=== PATIENT | female | born 1940 | race Caucasian/White ===

== ENCOUNTER 2021-10-21 13:50 | Inpatient (IN) ==
[2021-10-21] MEDS ORDERED: Ipratropium/Albuterol Neb 3 ML IH ONE (14:20)
[2021-10-21 14:45] LABS: Basophils % 0.4 %; Eosinophils % 0.8 %; Hemoglobin 13.6 g/dL (11.5-15.4); Immature Granulocytes % 0.4 % (0-4); Lymphocytes # 1.6 K/mcL (0.6-4.6); Lymphocytes % 31.4 %; Mean Corpuscular HGB Conc 32.4 g/dL (31.6-35.5); Mean Corpuscular Hemoglobin 31.1 pg (28.0-33.3); Mean Corpuscular Volume 96.1 fL (83.0-100.0); Monocytes # 0.7 K/mcL (0.0-1.3); Monocytes % 13.8 %; Neutrophils # 2.7 K/mcL (1.6-8.9); Platelet Count 321 K/mcL (140-400); Red Blood Count 4.37 M/mcL (3.82-4.97); Segmented Neutrophils % 53.2 %
[2021-10-21 15:05] LABS: Calcium 9.2 mg/dL (8.6-10.3); Potassium 3.3 mEq/L (3.5-5.1); Troponin I 0.03 ng/mL (< 0.04)
[2021-10-21] MEDS ORDERED: Piperacillin/Tazobactam 3.375 GM in 0.9 % Sodium Chloride Mini Bag 100 ML IVPB ONE (15:13)
[2021-10-21] MEDS ORDERED: Naloxone 0.4 MG/ML INJ IVP PRN (17:13)
[2021-10-21] MEDS ORDERED: MOM Conc 10 ML UD.LIQ PO PRN (17:13)
[2021-10-21] MEDS ORDERED: Ondansetron 4 MG/2 ML VIAL IVP PRN (17:13)
[2021-10-21] MEDS ORDERED: Mag Hydrox/Al Hydrox/Simeth 30 ML UDC PO PRN (17:13)
[2021-10-21] MEDS ORDERED: Loratadine 10 MG TABLET PO PRN (17:31)
[2021-10-21] MEDS: *HR* HYDROcodone/Acet 5/325 mg TABLET PO PRN (21:10)
[2021-10-21] MEDS: Gabapentin 100 MG CAPSULE PO SCH (21:11)
[2021-10-21] MEDS: Piperacillin/Tazobactam 3.375 GM in 0.9 % Sodium Chloride Mini Bag 100 ML IVPB SCH (23:50)
[2021-10-22 07:47] LABS: Basophils % 0.6 %; Eosinophils # 0.1 K/mcL (0.0-0.6); Eosinophils % 1.3 %; Hematocrit 37.4 % (35.3-44.9); Hemoglobin 11.8 g/dL (11.5-15.4); Immature Granulocytes % 0.2 % (0-4); Lymphocytes # 1.6 K/mcL (0.6-4.6); Lymphocytes % 34.8 %; Mean Corpuscular HGB Conc 31.6 g/dL (31.6-35.5); Mean Corpuscular Hemoglobin 30.7 pg (28.0-33.3); Mean Corpuscular Volume 97.4 fL (83.0-100.0); Monocytes # 0.8 K/mcL (0.0-1.3); Monocytes % 16.5 %; Neutrophils # 2.2 K/mcL (1.6-8.9); Platelet Count 279 K/mcL (140-400); Red Blood Count 3.84 M/mcL (3.82-4.97); Red Cell Distribution Width 16.3 % (11.5-14.5); Segmented Neutrophils % 46.6 %; White Blood Count 4.6 K/mcL (4.3-11.1)
[2021-10-22 08:04] LABS: Calcium 8.7 mg/dL (8.6-10.3); Potassium 3.1 mEq/L (3.5-5.1)
[2021-10-22] MEDS ORDERED: *HR* Rivaroxaban 10 MG TABLET PO SCH (09:00)
[2021-10-22] MEDS: gemfibroziL 600 MG TABLET PO SCH ×2 (09:41→17:12)
[2021-10-22] MEDS: Furosemide 20 MG TABLET PO SCH (09:41)
[2021-10-22] MEDS: Gabapentin 100 MG CAPSULE PO SCH ×2 (09:41→20:03)
[2021-10-22] MEDS: Cyanocobalamin (B-12) 1,000 MCG TABLET PO SCH (09:41)
[2021-10-22] MEDS: Piperacillin/Tazobactam 3.375 GM in 0.9 % Sodium Chloride Mini Bag 100 ML IVPB SCH ×2 (09:41→16:58)
[2021-10-22 11:51] LABS: Adenovirus Not Detected (Not Detect); Bordetella Pertussis Not Detected (Not Detect); Chlamydophila pneumoniae Not Detected (Not Detect); Coronavirus 229E Not Detected (Not Detect); Coronavirus HKU1 Not Detected (Not Detect); Coronavirus NL63 Not Detected (Not Detect); Coronavirus OC43 Not Detected (Not Detect); Human Metapneumovirus Not Detected (Not Detect); Human Rhinovirus/Enterovirus Not Detected (Not Detect); Influenza A Subtype 2009 H1 Not Detected (Not Detect); Influenza B Not Detected (Not Detect); Mycoplasma pneumoniae Not Detected (Not Detect); Parainfluenza Virus 1 Not Detected (Not Detect); Parainfluenza Virus 2 Not Detected (Not Detect); Parainfluenza Virus 3 Not Detected (Not Detect); Parainfluenza Virus 4 Not Detected (Not Detect); Respiratory Syncytial Virus Not Detected (Not Detect); SARS-CoV-2 Not Detected (Not Detect)
[2021-10-22] MEDS: 0.9 % Sodium Chloride 1,000 ML IVC SCH (16:01)
[2021-10-23] MEDS: Piperacillin/Tazobactam 3.375 GM in 0.9 % Sodium Chloride Mini Bag 100 ML IVPB SCH ×3 (01:03→16:13)
[2021-10-23 06:36] LABS: Basophils # 0.1 K/mcL (0.0-0.2); Basophils % 0.9 %; Eosinophils # 0.1 K/mcL (0.0-0.6); Eosinophils % 2.5 %; Hematocrit 38.6 % (35.3-44.9); Hemoglobin 12.1 g/dL (11.5-15.4); Immature Granulocytes % 0.2 % (0-4); Lymphocytes # 1.6 K/mcL (0.6-4.6); Lymphocytes % 31.1 %; Mean Corpuscular HGB Conc 31.3 g/dL (31.6-35.5); Mean Corpuscular Hemoglobin 31.2 pg (28.0-33.3); Mean Corpuscular Volume 99.5 fL (83.0-100.0); Mean Platelet Volume 10.2 fL (9.4-12.4); Monocytes # 0.8 K/mcL (0.0-1.3); Monocytes % 14.8 %; Neutrophils # 2.7 K/mcL (1.6-8.9); Platelet Count 273 K/mcL (140-400); Red Blood Count 3.88 M/mcL (3.82-4.97); Red Cell Distribution Width 16.5 % (11.5-14.5); Segmented Neutrophils % 50.5 %; White Blood Count 5.3 K/mcL (4.3-11.1)
[2021-10-23 07:01] LABS: Calcium 8.5 mg/dL (8.6-10.3); Potassium 3.5 mEq/L (3.5-5.1)
[2021-10-23] MEDS: Gabapentin 100 MG CAPSULE PO SCH ×2 (09:09→19:55)
[2021-10-23] MEDS: gemfibroziL 600 MG TABLET PO SCH ×2 (09:10→16:14)
[2021-10-23] MEDS: Cyanocobalamin (B-12) 1,000 MCG TABLET PO SCH (09:10)
[2021-10-23] MEDS: *HR* Rivaroxaban 15 MG TABLET PO SCH (09:10)
[2021-10-23] MEDS: 0.9 % Sodium Chloride 1,000 ML IVC SCH (09:11)
[2021-10-24] MEDS: Piperacillin/Tazobactam 3.375 GM in 0.9 % Sodium Chloride Mini Bag 100 ML IVPB SCH ×2 (00:31→08:30)
[2021-10-24] MEDS: Acetaminophen 325 MG TABLET PO PRN ×2 (03:04→16:00)
[2021-10-24 07:41] LABS: Basophils % 0.6 %; Eosinophils # 0.2 K/mcL (0.0-0.6); Eosinophils % 2.8 %; Hematocrit 38.3 % (35.3-44.9); Hemoglobin 12.1 g/dL (11.5-15.4); Immature Granulocytes % 0.2 % (0-4); Lymphocytes # 1.4 K/mcL (0.6-4.6); Lymphocytes % 25.2 %; Mean Corpuscular HGB Conc 31.6 g/dL (31.6-35.5); Mean Corpuscular Hemoglobin 31.2 pg (28.0-33.3); Mean Corpuscular Volume 98.7 fL (83.0-100.0); Mean Platelet Volume 10.3 fL (9.4-12.4); Monocytes # 0.8 K/mcL (0.0-1.3); Monocytes % 15.2 %; Platelet Count 261 K/mcL (140-400); Red Blood Count 3.88 M/mcL (3.82-4.97); Red Cell Distribution Width 15.9 % (11.5-14.5); White Blood Count 5.4 K/mcL (4.3-11.1)
[2021-10-24 07:53] LABS: Calcium 8.6 mg/dL (8.6-10.3); Magnesium 1.6 mg/dL (1.6-2.6); Potassium 3.5 mEq/L (3.5-5.1)
[2021-10-24] MEDS: Cyanocobalamin (B-12) 1,000 MCG TABLET PO SCH (08:31)
[2021-10-24] MEDS: *HR* Rivaroxaban 15 MG TABLET PO SCH (08:31)
[2021-10-24] MEDS: Gabapentin 100 MG CAPSULE PO SCH ×2 (08:32→19:56)
[2021-10-24] MEDS: gemfibroziL 600 MG TABLET PO SCH ×2 (08:32→18:31)
[2021-10-24] MEDS: lisinopriL 20 MG TABLET PO SCH (13:16)
[2021-10-24] MEDS: amLODIPine 5 MG TABLET PO SCH ×3 (13:16→19:03)
[2021-10-24] MEDS: Amoxicillin/Clavulanate 500 MG TABLET PO SCH (17:05)
[2021-10-25 05:02] LABS: Basophils # 0.1 K/mcL (0.0-0.2); Basophils % 0.9 %; Eosinophils # 0.1 K/mcL (0.0-0.6); Eosinophils % 1.8 %; Hematocrit 38.1 % (35.3-44.9); Hemoglobin 12.1 g/dL (11.5-15.4); Immature Granulocytes % 0.2 % (0-4); Lymphocytes # 1.4 K/mcL (0.6-4.6); Lymphocytes % 24.5 %; Mean Corpuscular HGB Conc 31.8 g/dL (31.6-35.5); Mean Corpuscular Hemoglobin 31.2 pg (28.0-33.3); Mean Corpuscular Volume 98.2 fL (83.0-100.0); Mean Platelet Volume 10.1 fL (9.4-12.4); Monocytes # 0.7 K/mcL (0.0-1.3); Monocytes % 13.1 %; Neutrophils # 3.3 K/mcL (1.6-8.9); Platelet Count 268 K/mcL (140-400); Red Blood Count 3.88 M/mcL (3.82-4.97); Red Cell Distribution Width 15.9 % (11.5-14.5); Segmented Neutrophils % 59.5 %; White Blood Count 5.5 K/mcL (4.3-11.1)
[2021-10-25] MEDS: Acetaminophen 325 MG TABLET PO PRN ×2 (05:18→20:02)
[2021-10-25 06:00] LABS: Magnesium 1.7 mg/dL (1.6-2.6); Potassium 3.6 mEq/L (3.5-5.1)
[2021-10-25] MEDS: Furosemide 20 MG TABLET PO SCH (09:13)
[2021-10-25] MEDS: amLODIPine 5 MG TABLET PO SCH (09:13)
[2021-10-25] MEDS: *HR* Rivaroxaban 15 MG TABLET PO SCH (09:13)
[2021-10-25] MEDS: Amoxicillin/Clavulanate 500 MG TABLET PO SCH ×2 (09:13→18:22)
[2021-10-25] MEDS: gemfibroziL 600 MG TABLET PO SCH ×2 (09:14→18:22)
[2021-10-25] MEDS: Cyanocobalamin (B-12) 1,000 MCG TABLET PO SCH (09:14)
[2021-10-25] MEDS: Gabapentin 100 MG CAPSULE PO SCH ×2 (09:14→20:02)
[2021-10-25] MEDS: lisinopriL 20 MG TABLET PO SCH (09:14)
[2021-10-25] MEDS: *HR* HYDROcodone/Acet 5/325 mg TABLET PO PRN (23:44)
[2021-10-26 07:31] LABS: Basophils % 0.4 %; Eosinophils # 0.1 K/mcL (0.0-0.6); Eosinophils % 1.5 %; Hematocrit 36.5 % (35.3-44.9); Hemoglobin 11.5 g/dL (11.5-15.4); Immature Granulocytes % 0.2 % (0-4); Lymphocytes # 1.3 K/mcL (0.6-4.6); Lymphocytes % 27.1 %; Mean Corpuscular HGB Conc 31.5 g/dL (31.6-35.5); Mean Corpuscular Hemoglobin 31.2 pg (28.0-33.3); Mean Corpuscular Volume 98.9 fL (83.0-100.0); Mean Platelet Volume 10.2 fL (9.4-12.4); Monocytes # 0.7 K/mcL (0.0-1.3); Monocytes % 15.4 %; Neutrophils # 2.6 K/mcL (1.6-8.9); Platelet Count 240 K/mcL (140-400); Red Blood Count 3.69 M/mcL (3.82-4.97); Red Cell Distribution Width 15.9 % (11.5-14.5); Segmented Neutrophils % 55.4 %; White Blood Count 4.7 K/mcL (4.3-11.1)
[2021-10-26 07:43] LABS: BUN/Creatinine Ratio 11 (6-26); Blood Urea Nitrogen 10 mg/dL (8-23); Calcium 8.7 mg/dL (8.6-10.3); Carbon Dioxide 30 mEq/L (23-29); Chloride 105 mEq/L (98-107); Glucose 81 mg/dL (70-105); Magnesium 1.6 mg/dL (1.6-2.6); Osmolality,Calculated 290 (280-300); Potassium 3.5 mEq/L (3.5-5.1); Sodium 141 mEq/L (136-145); eGFR For African Americans > 60 (> 60); eGFR For Non-African Americans > 60 (> 60)
[2021-10-26] MEDS: Cyanocobalamin (B-12) 1,000 MCG TABLET PO SCH (09:31)
[2021-10-26] MEDS: gemfibroziL 600 MG TABLET PO SCH (09:31)
[2021-10-26] MEDS: amLODIPine 5 MG TABLET PO SCH (09:31)
[2021-10-26] MEDS: *HR* Rivaroxaban 15 MG TABLET PO SCH (09:31)
[2021-10-26] MEDS: Furosemide 20 MG TABLET PO SCH (09:31)
[2021-10-26] MEDS: lisinopriL 20 MG TABLET PO SCH (09:31)
[2021-10-26] MEDS: Gabapentin 100 MG CAPSULE PO SCH (09:31)
[2021-10-26] MEDS: Amoxicillin/Clavulanate 500 MG TABLET PO SCH (09:33)
[2021-10-26] MEDS ORDERED: Cefdinir 300 MG CAPSULE PO SCH (09:35)
[2021-10-26 11:09] VITALS: BP 116/57; PULSE 64; RESP 18; TEMP 98.7; O2SAT 96
[2021-10-26] MEDS: Acetaminophen 325 MG TABLET PO PRN (14:44)
== END 2021-10-26 15:19 | disposition home health service (06) ==
LOC: INPPIK 13:50 → EMEROOPIK 13:50 → INPPIK 18:27
PROVIDERS: ADMIT Registered Nurse Emergency; ATTEND Registered Nurse Emergency

== ENCOUNTER 2021-10-28 14:27 | Observation (INO) ==
[2021-10-28 16:03] LABS: Basophils % 0.4 %; Eosinophils % 0.6 %; Immature Granulocytes % 0.4 % (0-4); Lymphocytes # 1.4 K/mcL (0.6-4.6); Lymphocytes % 27.1 %; Mean Corpuscular HGB Conc 32.4 g/dL (31.6-35.5); Mean Corpuscular Hemoglobin 31.1 pg (28.0-33.3); Mean Corpuscular Volume 95.9 fL (83.0-100.0); Monocytes # 0.6 K/mcL (0.0-1.3); Monocytes % 11.4 %; Platelet Count 266 K/mcL (140-400); Red Blood Count 3.86 M/mcL (3.82-4.97); Red Cell Distribution Width 15.8 % (11.5-14.5); Segmented Neutrophils % 60.1 %
[2021-10-28 16:11] LABS: INR 2.3; Prothrombin Time 25.7 Seconds (9.4-12.1)
[2021-10-28 16:13] LABS: Activated Partial Thrombo Time 50.3 Seconds (26.0-36.0)
[2021-10-28 16:21] LABS: Alanine Aminotransferase 7 Units/L (7-52); Albumin 3.1 g/dL (3.5-5.7); Albumin/Globulin Ratio 0.9 (1.1-2.2); Alkaline Phosphatase 75 Units/L (34-104); Aspartate Amino Transferase 17 Units/L (13-39); BUN/Creatinine Ratio 13 (6-26); Bilirubin,Indirect 0.4 mg/dL (0.0-1.0); Bilirubin,Total 0.4 mg/dL (0.3-1.0); Blood Urea Nitrogen 10 mg/dL (8-23); Carbon Dioxide 30 mEq/L (23-29); Chloride 101 mEq/L (98-107); Globulin 3.3 g/dL (2.4-3.5); Glucose 75 mg/dL (70-105); Osmolality,Calculated 288 (280-300); Potassium 3.3 mEq/L (3.5-5.1); Sodium 140 mEq/L (136-145); Total Protein 6.4 g/dL (6.4-8.9); eGFR For African Americans > 60 (> 60); eGFR For Non-African Americans > 60 (> 60)
[2021-10-28 16:22] LABS: Troponin I < 0.03 ng/mL (< 0.04)
[2021-10-28] MEDS ORDERED: Ondansetron 4 MG/2 ML VIAL IVP PRN (16:52)
[2021-10-28] MEDS ORDERED: Acetaminophen 325 MG TABLET PO PRN (16:52)
[2021-10-28] MEDS ORDERED: Naloxone 0.4 MG/ML INJ IVP PRN (16:52)
[2021-10-28] MEDS ORDERED: Perflutren Lipid Microsphere 1.3 ML in 0.9 % Sodium Chloride 8.7 ML IVP PRN (16:55)
[2021-10-28] MEDS ORDERED: Loratadine 10 MG TABLET PO PRN (17:03)
[2021-10-28] MEDS: Furosemide 20 MG/2 ML VIAL IVP SCH (18:21)
[2021-10-28] MEDS: gemfibroziL 600 MG TABLET PO SCH (18:21)
[2021-10-28] MEDS: Gabapentin 100 MG CAPSULE PO SCH (21:14)
[2021-10-28] MEDS: Cefdinir 300 MG CAPSULE PO SCH (21:14)
[2021-10-28] MEDS: Budesonide/Formoterol 160/4.5 1 PUFF INH IH SCH (21:39)
[2021-10-29 04:45] LABS: BUN/Creatinine Ratio 14 (6-26); Blood Urea Nitrogen 11 mg/dL (8-23); Calcium 8.6 mg/dL (8.6-10.3); Carbon Dioxide 31 mEq/L (23-29); Chloride 101 mEq/L (98-107); Chol/HDL Ratio 3.4 (0-4.9); Cholesterol 124 mg/dL (< 200); Glucose 68 mg/dL (70-105); HDL Cholesterol 36 mg/dL (40-59); LDL Cholesterol,Calculated 56 mg/dL (< 100); Magnesium 1.4 mg/dL (1.6-2.6); Osmolality,Calculated 290 (280-300); Sodium 141 mEq/L (136-145); Triglycerides 160 mg/dL (< 150); Troponin I < 0.03 ng/mL (< 0.04); eGFR For African Americans > 60 (> 60); eGFR For Non-African Americans > 60 (> 60)
[2021-10-29 04:48] LABS: Hematocrit 35.2 % (35.3-44.9); Hemoglobin 11.4 g/dL (11.5-15.4); Mean Corpuscular HGB Conc 32.4 g/dL (31.6-35.5); Mean Corpuscular Hemoglobin 31.1 pg (28.0-33.3); Mean Corpuscular Volume 96.2 fL (83.0-100.0); Red Blood Count 3.66 M/mcL (3.82-4.97); White Blood Count 4.4 K/mcL (4.3-11.1)
[2021-10-29 04:49] LABS: Mean Platelet Volume 10.4 fL (9.4-12.4); Platelet Count 237 K/mcL (140-400); Red Cell Distribution Width 15.5 % (11.5-14.5)
[2021-10-29] MEDS: Furosemide 20 MG/2 ML VIAL IVP SCH ×2 (08:21→16:39)
[2021-10-29] MEDS: Cyanocobalamin (B-12) 1,000 MCG TABLET PO SCH (08:21)
[2021-10-29] MEDS: lisinopriL 10 MG TABLET PO SCH (08:21)
[2021-10-29] MEDS: Cefdinir 300 MG CAPSULE PO SCH ×2 (08:21→21:55)
[2021-10-29] MEDS: Gabapentin 100 MG CAPSULE PO SCH ×2 (08:21→21:55)
[2021-10-29] MEDS: *HR* Rivaroxaban 10 MG TABLET PO SCH (08:21)
[2021-10-29] MEDS: gemfibroziL 600 MG TABLET PO SCH ×2 (08:21→16:39)
[2021-10-29] MEDS: Budesonide/Formoterol 160/4.5 1 PUFF INH IH SCH ×2 (09:29→22:36)
[2021-10-29] MEDS: Melatonin 3 MG TABLET PO PRN (21:55)
[2021-10-30] MEDS: Cefdinir 300 MG CAPSULE PO SCH ×2 (07:40→20:33)
[2021-10-30] MEDS: *HR* Rivaroxaban 10 MG TABLET PO SCH (07:41)
[2021-10-30] MEDS: lisinopriL 10 MG TABLET PO SCH (07:41)
[2021-10-30] MEDS: gemfibroziL 600 MG TABLET PO SCH ×2 (07:42→17:39)
[2021-10-30] MEDS: Cyanocobalamin (B-12) 1,000 MCG TABLET PO SCH (07:42)
[2021-10-30] MEDS: Gabapentin 100 MG CAPSULE PO SCH ×2 (07:42→20:33)
[2021-10-30] MEDS: Furosemide 20 MG/2 ML VIAL IVP SCH (07:43)
[2021-10-30] MEDS: Budesonide/Formoterol 160/4.5 1 PUFF INH IH SCH ×2 (10:01→22:25)
[2021-10-30] MEDS ORDERED: 0.9 % Sodium Chloride 250 ML IVC ONE (11:14)
[2021-10-30] MEDS ORDERED: Potassium Chloride Elixir 20 MEQ/15 ML UDC PO ONE (11:15)
[2021-10-30] MEDS: Melatonin 3 MG TABLET PO PRN (20:33)
[2021-10-31] MEDS ORDERED: Furosemide 20 MG TABLET PO SCH ×2 (09:00→18:00)
[2021-10-31] MEDS ORDERED: Ipratropium/Albuterol Neb 3 ML IH PRN (09:51)
[2021-10-31] MEDS ORDERED: Furosemide 20 MG/2 ML VIAL IVP ONE (09:52)
[2021-10-31] MEDS: Aspirin 81 MG TAB.CHEW PO SCH (10:04)
[2021-10-31] MEDS: Cyanocobalamin (B-12) 1,000 MCG TABLET PO SCH (10:04)
[2021-10-31] MEDS: Magnesium Oxide 400 MG TABLET PO SCH (10:04)
[2021-10-31] MEDS: Cefdinir 300 MG CAPSULE PO SCH ×2 (10:04→19:58)
[2021-10-31] MEDS: gemfibroziL 600 MG TABLET PO SCH ×2 (10:04→18:18)
[2021-10-31] MEDS: *HR* Rivaroxaban 10 MG TABLET PO SCH (10:05)
[2021-10-31] MEDS: Gabapentin 100 MG CAPSULE PO SCH ×2 (10:07→19:58)
[2021-10-31] MEDS: lisinopriL 10 MG TABLET PO SCH (10:08)
[2021-10-31] MEDS: Budesonide/Formoterol 160/4.5 1 PUFF INH IH SCH ×2 (10:18→21:50)
[2021-10-31] MEDS: Furosemide 20 MG TABLET PO SCH (18:18)
[2021-10-31 20:25] VITALS: PULSE 74
[2021-11-01 06:35] LABS: Basophils % 0.5 %; Eosinophils # 0.1 K/mcL (0.0-0.6); Eosinophils % 0.9 %; Hematocrit 40.7 % (35.3-44.9); Hemoglobin 12.7 g/dL (11.5-15.4); Immature Granulocytes % 0.3 % (0-4); Lymphocytes # 1.5 K/mcL (0.6-4.6); Lymphocytes % 22.3 %; Mean Corpuscular HGB Conc 31.2 g/dL (31.6-35.5); Mean Corpuscular Volume 99.3 fL (83.0-100.0); Mean Platelet Volume 10.1 fL (9.4-12.4); Monocytes # 0.9 K/mcL (0.0-1.3); Monocytes % 14.2 %; Neutrophils # 4.1 K/mcL (1.6-8.9); Platelet Count 301 K/mcL (140-400); Red Cell Distribution Width 15.7 % (11.5-14.5); Segmented Neutrophils % 61.8 %; White Blood Count 6.6 K/mcL (4.3-11.1)
[2021-11-01 06:54] LABS: Calcium 9.4 mg/dL (8.6-10.3); Magnesium 1.9 mg/dL (1.6-2.6); Potassium 4.4 mEq/L (3.5-5.1)
[2021-11-01 07:26] VITALS: TEMP 97.9
[2021-11-01] MEDS ORDERED: *HR* Rivaroxaban 15 MG TABLET PO SCH (09:00)
[2021-11-01] MEDS: Cefdinir 300 MG CAPSULE PO SCH (09:20)
[2021-11-01] MEDS: gemfibroziL 600 MG TABLET PO SCH ×2 (09:21→16:42)
[2021-11-01] MEDS: Magnesium Oxide 400 MG TABLET PO SCH (09:22)
[2021-11-01] MEDS: Aspirin 81 MG TAB.CHEW PO SCH (09:22)
[2021-11-01] MEDS: Gabapentin 100 MG CAPSULE PO SCH (09:22)
[2021-11-01] MEDS: Cyanocobalamin (B-12) 1,000 MCG TABLET PO SCH (09:22)
[2021-11-01] MEDS: Furosemide 20 MG TABLET PO SCH ×2 (09:22→16:43)
[2021-11-01] MEDS: lisinopriL 10 MG TABLET PO SCH (09:22)
[2021-11-01] MEDS: Budesonide/Formoterol 160/4.5 1 PUFF INH IH SCH (09:47)
[2021-11-01 09:52] VITALS: RESP 18
[2021-11-01 15:16] VITALS: O2SAT 92
[2021-11-01 17:42] VITALS: BP 98/47
== END 2021-11-01 19:34 ==
LOC: INPPIK 14:27 → EMEROOPIK 14:27 → INPPIK 17:58
PROVIDERS: ADMIT Internal Medicine; ATTEND Internal Medicine

== ENCOUNTER 2021-11-01 14:47 | Inpatient (IN) ==
[2021-11-01] MEDS: Cefdinir 300 MG CAPSULE PO SCH (20:34)
[2021-11-01] MEDS: Gabapentin 100 MG CAPSULE PO SCH (20:34)
[2021-11-01] MEDS: Loratadine 10 MG TABLET PO PRN (20:35)
[2021-11-01] MEDS: Budesonide/Formoterol 160/4.5 1 PUFF INH IH SCH (21:54)
[2021-11-01] MEDS: *HR* HYDROcodone/Acet 5/325 mg TABLET PO PRN (22:11)
[2021-11-02 06:17] LABS: Calcium 9.4 mg/dL (8.6-10.3)
[2021-11-02 07:46] LABS: Basophils % 0.4 %; Eosinophils % 0.4 %; Hematocrit 34.9 % (35.3-44.9); Immature Granulocytes % 0.2 % (0-4); Lymphocytes # 1.4 K/mcL (0.6-4.6); Lymphocytes % 25.7 %; Mean Corpuscular HGB Conc 31.5 g/dL (31.6-35.5); Mean Corpuscular Hemoglobin 31.4 pg (28.0-33.3); Mean Corpuscular Volume 99.7 fL (83.0-100.0); Mean Platelet Volume 10.6 fL (9.4-12.4); Monocytes # 0.7 K/mcL (0.0-1.3); Monocytes % 13.9 %; Neutrophils # 3.1 K/mcL (1.6-8.9); Platelet Count 262 K/mcL (140-400); Segmented Neutrophils % 59.4 %; White Blood Count 5.3 K/mcL (4.3-11.1)
[2021-11-02] MEDS ORDERED: *HR* Rivaroxaban 10 MG TABLET PO SCH (09:00)
[2021-11-02] MEDS: Gabapentin 100 MG CAPSULE PO SCH ×2 (09:27→21:22)
[2021-11-02] MEDS: gemfibroziL 600 MG TABLET PO SCH ×2 (09:27→16:48)
[2021-11-02] MEDS: Cefdinir 300 MG CAPSULE PO SCH (09:29)
[2021-11-02] MEDS: Cyanocobalamin (B-12) 1,000 MCG TABLET PO SCH (09:29)
[2021-11-02] MEDS: Furosemide 20 MG TABLET PO SCH (10:07)
[2021-11-02] MEDS: lisinopriL 10 MG TABLET PO SCH (10:08)
[2021-11-02] MEDS: amLODIPine 5 MG TABLET PO SCH (10:08)
[2021-11-02] MEDS: Budesonide/Formoterol 160/4.5 1 PUFF INH IH SCH ×2 (10:29→21:51)
[2021-11-02] MEDS: *HR* HYDROcodone/Acet 5/325 mg TABLET PO PRN (17:56)
[2021-11-03] MEDS: Melatonin 3 MG TABLET PO PRN (02:35)
[2021-11-03 06:57] LABS: Basophils % 0.5 %; Eosinophils # 0.1 K/mcL (0.0-0.6); Eosinophils % 0.8 %; Hematocrit 34.4 % (35.3-44.9); Hemoglobin 10.7 g/dL (11.5-15.4); Immature Granulocytes % 0.3 % (0-4); Lymphocytes # 1.5 K/mcL (0.6-4.6); Lymphocytes % 24.7 %; Mean Corpuscular HGB Conc 31.1 g/dL (31.6-35.5); Mean Corpuscular Hemoglobin 31.2 pg (28.0-33.3); Mean Corpuscular Volume 100.3 fL (83.0-100.0); Mean Platelet Volume 10.8 fL (9.4-12.4); Monocytes # 0.9 K/mcL (0.0-1.3); Monocytes % 14.1 %; Neutrophils # 3.7 K/mcL (1.6-8.9); Platelet Count 265 K/mcL (140-400); Red Blood Count 3.43 M/mcL (3.82-4.97); Red Cell Distribution Width 15.9 % (11.5-14.5); Segmented Neutrophils % 59.6 %; White Blood Count 6.2 K/mcL (4.3-11.1)
[2021-11-03] MEDS: Gabapentin 100 MG CAPSULE PO SCH ×2 (08:10→22:15)
[2021-11-03] MEDS: Furosemide 20 MG TABLET PO SCH (08:10)
[2021-11-03] MEDS: lisinopriL 10 MG TABLET PO SCH (08:10)
[2021-11-03] MEDS: amLODIPine 5 MG TABLET PO SCH (08:10)
[2021-11-03] MEDS: gemfibroziL 600 MG TABLET PO SCH ×2 (08:10→16:23)
[2021-11-03] MEDS: Cyanocobalamin (B-12) 1,000 MCG TABLET PO SCH (08:10)
[2021-11-03] MEDS ORDERED: Cefdinir 300 MG CAPSULE PO SCH (09:00)
[2021-11-03] MEDS: Budesonide/Formoterol 160/4.5 1 PUFF INH IH SCH ×2 (10:44→20:25)
[2021-11-03 11:31] LABS: Thyroid Stimulating Hormone 2.406 mcIU/mL (0.340-5.600)
[2021-11-03] MEDS: Acetaminophen 325 MG TABLET PO PRN (11:38)
[2021-11-03 11:40] LABS: Calcium 9.1 mg/dL (8.6-10.3); Magnesium 1.9 mg/dL (1.6-2.6)
[2021-11-03] MEDS: *HR* Rivaroxaban 15 MG TABLET PO SCH (16:23)
[2021-11-03] MEDS: Loratadine 10 MG TABLET PO PRN (23:19)
[2021-11-04] MEDS: Ipratropium 1 PUFF INHALER IH PRN (00:34)
[2021-11-04] MEDS: Acetaminophen 325 MG TABLET PO PRN ×3 (01:08→19:42)
[2021-11-04] MEDS: Budesonide/Formoterol 160/4.5 1 PUFF INH IH SCH ×2 (09:19→21:28)
[2021-11-04] MEDS: Cyanocobalamin (B-12) 1,000 MCG TABLET PO SCH (09:38)
[2021-11-04] MEDS: gemfibroziL 600 MG TABLET PO SCH ×2 (09:41→18:31)
[2021-11-04] MEDS: Gabapentin 100 MG CAPSULE PO SCH ×2 (09:41→19:42)
[2021-11-04] MEDS: amLODIPine 5 MG TABLET PO SCH (09:42)
[2021-11-04] MEDS: Furosemide 20 MG TABLET PO SCH (09:42)
[2021-11-04] MEDS: *HR* Rivaroxaban 15 MG TABLET PO SCH (18:31)
[2021-11-04] MEDS: Melatonin 3 MG TABLET PO PRN (19:42)
[2021-11-05 00:53] LABS: Bilirubin,Urine Negative (Negative); Blood,Urine Small (Negative); Clarity,Urine Slightly Cloudy (Clear); Color,Urine Yellow (Yellow); Glucose,Urine (UA) Normal (Normal); Ketones,Urine Negative (Negative); Leukocyte Esterase,Urine Negative (Negative); Nitrite,Urine Negative (Negative); Protein,Urine Negative (Neg-Trace); Urobilinogen,Urine Normal (Normal)
[2021-11-05 01:14] LABS: Bacteria,Urine Few per hpf (None-Few); Hyaline Casts,Urine Moderate per lpf (None Seen); RBC,Urine 0-3 per hpf (0-3); Squamous Epithelial Cell,Urine Few per hpf (None-Few); Transitional Epi Cells,Urine Few per hpf (None-Few); WBC,Urine 0-3 per hpf (0-3)
[2021-11-05 01:16] LABS: Mucus,Urine Few per lpf (None-Few)
[2021-11-05] MEDS: Cyanocobalamin (B-12) 1,000 MCG TABLET PO SCH (08:07)
[2021-11-05] MEDS: amLODIPine 5 MG TABLET PO SCH (08:07)
[2021-11-05] MEDS: Furosemide 20 MG TABLET PO SCH (08:07)
[2021-11-05] MEDS: Gabapentin 100 MG CAPSULE PO SCH ×2 (08:07→20:41)
[2021-11-05] MEDS: gemfibroziL 600 MG TABLET PO SCH ×2 (08:07→16:13)
[2021-11-05] MEDS ORDERED: Furosemide 20 MG TABLET PO ONE (08:22)
[2021-11-05] MEDS: Budesonide/Formoterol 160/4.5 1 PUFF INH IH SCH ×2 (10:03→21:46)
[2021-11-05] MEDS: *HR* Rivaroxaban 15 MG TABLET PO SCH (16:13)
[2021-11-05] MEDS: Melatonin 3 MG TABLET PO PRN (20:41)
[2021-11-06] MEDS: Ipratropium 1 PUFF INHALER IH PRN (02:31)
[2021-11-06] MEDS: gemfibroziL 600 MG TABLET PO SCH ×2 (08:12→16:07)
[2021-11-06] MEDS: Cyanocobalamin (B-12) 1,000 MCG TABLET PO SCH (08:12)
[2021-11-06] MEDS: Furosemide 20 MG TABLET PO SCH (08:12)
[2021-11-06] MEDS: amLODIPine 5 MG TABLET PO SCH (08:12)
[2021-11-06] MEDS: Gabapentin 100 MG CAPSULE PO SCH ×2 (08:14→21:42)
[2021-11-06] MEDS: Budesonide/Formoterol 160/4.5 1 PUFF INH IH SCH ×2 (09:00→21:17)
[2021-11-06] MEDS: lisinopriL 10 MG TABLET PO SCH ×2 (11:16→13:44)
[2021-11-06] MEDS ORDERED: Furosemide 20 MG TABLET PO ONE (14:15)
[2021-11-06] MEDS: *HR* Rivaroxaban 15 MG TABLET PO SCH (16:07)
[2021-11-06] MEDS: Melatonin 3 MG TABLET PO PRN (21:42)
[2021-11-06] MEDS: *HR* HYDROcodone/Acet 5/325 mg TABLET PO PRN (22:38)
[2021-11-07] MEDS ORDERED: Linezolid 600 MG TABLET PO SCH (09:00)
[2021-11-07] MEDS: Budesonide/Formoterol 160/4.5 1 PUFF INH IH SCH ×2 (09:23→21:31)
[2021-11-07] MEDS: gemfibroziL 600 MG TABLET PO SCH ×2 (09:37→17:40)
[2021-11-07] MEDS: lisinopriL 10 MG TABLET PO SCH (09:37)
[2021-11-07] MEDS: Gabapentin 100 MG CAPSULE PO SCH ×2 (09:37→20:07)
[2021-11-07] MEDS: amLODIPine 5 MG TABLET PO SCH (09:39)
[2021-11-07] MEDS: Furosemide 20 MG TABLET PO SCH (09:39)
[2021-11-07] MEDS: Cyanocobalamin (B-12) 1,000 MCG TABLET PO SCH (09:40)
[2021-11-07] MEDS ORDERED: Fosfomycin Tromethamine 3 GM Packet PO ONE (14:00)
[2021-11-07] MEDS: *HR* Rivaroxaban 15 MG TABLET PO SCH (17:38)
[2021-11-07] MEDS: *HR* HYDROcodone/Acet 5/325 mg TABLET PO PRN (22:38)
[2021-11-08] MEDS: Budesonide/Formoterol 160/4.5 1 PUFF INH IH SCH ×2 (09:31→21:39)
[2021-11-08] MEDS: Cyanocobalamin (B-12) 1,000 MCG TABLET PO SCH (10:12)
[2021-11-08] MEDS: gemfibroziL 600 MG TABLET PO SCH ×2 (10:13→17:10)
[2021-11-08] MEDS: Gabapentin 100 MG CAPSULE PO SCH ×2 (10:13→19:58)
[2021-11-08] MEDS: Furosemide 20 MG TABLET PO SCH (10:13)
[2021-11-08] MEDS: amLODIPine 5 MG TABLET PO SCH (10:18)
[2021-11-08] MEDS: *HR* Rivaroxaban 15 MG TABLET PO SCH (17:10)
[2021-11-08] MEDS: Melatonin 3 MG TABLET PO PRN (19:58)
[2021-11-08] MEDS: Acetaminophen 325 MG TABLET PO PRN (19:59)
[2021-11-08] MEDS: *HR* HYDROcodone/Acet 5/325 mg TABLET PO PRN (20:53)
[2021-11-09] MEDS: Ipratropium 1 PUFF INHALER IH PRN ×2 (01:14→09:04)
[2021-11-09] MEDS: Acetaminophen 325 MG TABLET PO PRN (05:26)
[2021-11-09] MEDS: lisinopriL 10 MG TABLET PO SCH (08:10)
[2021-11-09] MEDS: gemfibroziL 600 MG TABLET PO SCH ×2 (08:40→17:02)
[2021-11-09] MEDS: Gabapentin 100 MG CAPSULE PO SCH ×2 (08:40→20:25)
[2021-11-09] MEDS: amLODIPine 5 MG TABLET PO SCH (08:40)
[2021-11-09] MEDS: Furosemide 20 MG TABLET PO SCH (08:41)
[2021-11-09] MEDS: Cyanocobalamin (B-12) 1,000 MCG TABLET PO SCH (08:41)
[2021-11-09] MEDS: Budesonide/Formoterol 160/4.5 1 PUFF INH IH SCH ×2 (09:03→21:31)
[2021-11-09] MEDS: *HR* Rivaroxaban 15 MG TABLET PO SCH (17:02)
[2021-11-09] MEDS: Melatonin 3 MG TABLET PO PRN (20:24)
[2021-11-09] MEDS: *HR* HYDROcodone/Acet 5/325 mg TABLET PO PRN (20:24)
[2021-11-10] MEDS: Ipratropium 1 PUFF INHALER IH PRN ×2 (00:46→09:22)
[2021-11-10 07:51] VITALS: BP 126/76; PULSE 62; TEMP 97.6
[2021-11-10] MEDS: gemfibroziL 600 MG TABLET PO SCH (08:46)
[2021-11-10] MEDS: Cyanocobalamin (B-12) 1,000 MCG TABLET PO SCH (08:47)
[2021-11-10] MEDS: Gabapentin 100 MG CAPSULE PO SCH (08:47)
[2021-11-10] MEDS: amLODIPine 5 MG TABLET PO SCH (08:47)
[2021-11-10] MEDS: Furosemide 20 MG TABLET PO SCH (08:51)
[2021-11-10] MEDS: Budesonide/Formoterol 160/4.5 1 PUFF INH IH SCH (09:22)
[2021-11-10 09:27] VITALS: RESP 18; O2SAT 94
[2021-11-10] MEDS ORDERED: Tiotropium 10 INH DOSE IH SCH (10:00)
== END 2021-11-10 11:48 | disposition home health service (06) | DRG 193 ==
LOC: INPPIK 19:27
PROVIDERS: ADMIT Family Medicine; ATTEND Family Medicine

== ENCOUNTER 2021-11-14 11:29 | Inpatient (IN) ==
[2021-11-14] MEDS ORDERED: Ipratropium/Albuterol Neb 3 ML IH ONE (11:47)
[2021-11-14] MEDS ORDERED: Furosemide 40 MG/4 ML VIAL IVP ONE (11:47)
[2021-11-14 12:15] LABS: Bilirubin,Urine Small (Negative); Blood,Urine Trace-intact (Negative); Clarity,Urine Clear (Clear); Color,Urine Yellow (Yellow); Glucose,Urine (UA) Normal (Normal); Ketones,Urine 15 mg/dL (Negative); Leukocyte Esterase,Urine Negative (Negative); Nitrite,Urine Negative (Negative); Protein,Urine 30 mg/dL (Neg-Trace); Specific Gravity,Urine 1.025 (1.010-1.025); Urobilinogen,Urine Normal (Normal)
[2021-11-14 12:20] LABS: ABG Base Excess 5 mEq/L (-2 to 3); ABG HCO3 33 mEq/L (21-27); ABG Oxygen Saturation 89 % (95-98); ABG PCO2 67 mmHg (35-45); ABG PO2 65 mmHg (85-104); ABG TCO2 35 mEq/L (20-26)
[2021-11-14 12:22] LABS: Bacteria,Urine Few per hpf (None-Few); Hyaline Casts,Urine Few per lpf (None Seen); Mucus,Urine Few per lpf (None-Few); Squamous Epithelial Cell,Urine Moderate per hpf (None-Few); WBC,Urine 0-3 per hpf (0-3)
[2021-11-14 12:26] LABS: Basophils % 0.3 %; Eosinophils % 0.1 %; Hematocrit 39.7 % (35.3-44.9); Hemoglobin 12.4 g/dL (11.5-15.4); Immature Granulocytes % 0.4 % (0-4); Lymphocytes % 12.7 %; Mean Corpuscular HGB Conc 31.2 g/dL (31.6-35.5); Mean Corpuscular Hemoglobin 30.8 pg (28.0-33.3); Mean Corpuscular Volume 98.5 fL (83.0-100.0); Mean Platelet Volume 9.9 fL (9.4-12.4); Monocytes # 0.7 K/mcL (0.0-1.3); Neutrophils # 6.2 K/mcL (1.6-8.9); Platelet Count 429 K/mcL (140-400); Red Blood Count 4.03 M/mcL (3.82-4.97); Red Cell Distribution Width 14.5 % (11.5-14.5); Segmented Neutrophils % 77.5 %
[2021-11-14 12:36] LABS: INR 1.1; Prothrombin Time 12.1 Seconds (9.4-12.1)
[2021-11-14 12:43] LABS: Alanine Aminotransferase 9 Units/L (7-52); Albumin 3.5 g/dL (3.5-5.7); Alkaline Phosphatase 65 Units/L (34-104); Aspartate Amino Transferase 22 Units/L (13-39); BUN/Creatinine Ratio 33 (6-26); Bilirubin,Indirect 0.4 mg/dL (0.0-1.0); Bilirubin,Total 0.4 mg/dL (0.3-1.0); Blood Urea Nitrogen 31 mg/dL (8-23); Calcium 9.7 mg/dL (8.6-10.3); Carbon Dioxide 34 mEq/L (23-29); Chloride 98 mEq/L (98-107); Globulin 3.6 g/dL (2.4-3.5); Glucose 77 mg/dL (70-105); Osmolality,Calculated 303 (280-300); Potassium 3.4 mEq/L (3.5-5.1); Sodium 144 mEq/L (136-145); Total Protein 7.1 g/dL (6.4-8.9); eGFR For African Americans > 60 (> 60); eGFR For Non-African Americans 58 (> 60)
[2021-11-14] MEDS ORDERED: Ondansetron ODT 4 MG TAB.RAPDIS SL PRN (14:41)
[2021-11-14] MEDS ORDERED: Naloxone 0.4 MG/ML INJ IVP PRN (14:41)
[2021-11-14] MEDS ORDERED: Furosemide 40 MG/4 ML VIAL IV ONE (14:51)
[2021-11-14] MEDS ORDERED: *HR* HYDROcodone/Acet 5/325 mg TABLET PO PRN (14:52)
[2021-11-14] MEDS ORDERED: Perflutren Lipid Microsphere 1.3 ML in 0.9 % Sodium Chloride 8.7 ML IVP PRN (14:54)
[2021-11-14] MEDS ORDERED: Loratadine 10 MG TABLET PO PRN (14:56)
[2021-11-14 15:34] LABS: Troponin I 0.04 ng/mL (< 0.04)
[2021-11-14] MEDS ORDERED: Acetaminophen 325 MG TABLET PO ONE (16:53)
[2021-11-14] MEDS: gemfibroziL 600 MG TABLET PO SCH (20:05)
[2021-11-14] MEDS: Gabapentin 100 MG CAPSULE PO SCH (20:11)
[2021-11-14] MEDS: Furosemide 40 MG/4 ML VIAL IVP SCH (20:12)
[2021-11-14] MEDS: Budesonide/Formoterol 160/4.5 1 PUFF INH IH SCH (21:51)
[2021-11-15] MEDS: Ipratropium/Albuterol Neb 3 ML IH PRN ×4 (01:54→22:09)
[2021-11-15 06:19] LABS: Basophils % 0.1 %; Eosinophils % 0.1 %; Hematocrit 40.4 % (35.3-44.9); Hemoglobin 12.5 g/dL (11.5-15.4); Immature Granulocytes % 0.4 % (0-4); Lymphocytes # 1.2 K/mcL (0.6-4.6); Mean Corpuscular HGB Conc 30.9 g/dL (31.6-35.5); Mean Corpuscular Hemoglobin 30.9 pg (28.0-33.3); Mean Corpuscular Volume 99.8 fL (83.0-100.0); Mean Platelet Volume 10.1 fL (9.4-12.4); Monocytes # 0.9 K/mcL (0.0-1.3); Monocytes % 11.9 %; Neutrophils # 5.2 K/mcL (1.6-8.9); Platelet Count 421 K/mcL (140-400); Red Blood Count 4.05 M/mcL (3.82-4.97); Red Cell Distribution Width 14.4 % (11.5-14.5); Segmented Neutrophils % 71.5 %; White Blood Count 7.3 K/mcL (4.3-11.1)
[2021-11-15 07:03] LABS: Alanine Aminotransferase 8 Units/L (7-52); Albumin 3.5 g/dL (3.5-5.7); Alkaline Phosphatase 62 Units/L (34-104); Aspartate Amino Transferase 23 Units/L (13-39); BUN/Creatinine Ratio 28 (6-26); Bilirubin,Total 0.6 mg/dL (0.3-1.0); Blood Urea Nitrogen 29 mg/dL (8-23); Calcium 9.7 mg/dL (8.6-10.3); Carbon Dioxide 42 mEq/L (23-29); Chloride 95 mEq/L (98-107); Globulin 3.4 g/dL (2.4-3.5); Glucose 72 mg/dL (70-105); Osmolality,Calculated 308 (280-300); Potassium 3.5 mEq/L (3.5-5.1); Sodium 147 mEq/L (136-145); Total Protein 6.9 g/dL (6.4-8.9); eGFR For African Americans > 60 (> 60); eGFR For Non-African Americans 51 (> 60)
[2021-11-15] MEDS: Budesonide/Formoterol 160/4.5 1 PUFF INH IH SCH ×2 (08:09→22:09)
[2021-11-15] MEDS: Gabapentin 100 MG CAPSULE PO SCH ×2 (08:11→20:56)
[2021-11-15] MEDS: amLODIPine 5 MG TABLET PO SCH (08:11)
[2021-11-15] MEDS: Cyanocobalamin (B-12) 1,000 MCG TABLET PO SCH (08:11)
[2021-11-15] MEDS: gemfibroziL 600 MG TABLET PO SCH ×2 (08:11→16:56)
[2021-11-15] MEDS: Furosemide 40 MG/4 ML VIAL IVP SCH (08:42)
[2021-11-15] MEDS: MethylPREDNISolone 40 MG/ML VIAL IVP SCH ×2 (12:31→16:57)
[2021-11-15] MEDS ORDERED: D5% in 0.45% NACL 250 ML IVC SCH (16:15)
[2021-11-15] MEDS ORDERED: acetaZOLAMIDE 250 MG TABLET PO SCH (17:00)
[2021-11-15] MEDS ORDERED: *HR* Rivaroxaban 15 MG TABLET PO SCH (17:00)
[2021-11-15] MEDS ORDERED: *HR* Rivaroxaban 10 MG TABLET PO SCH (17:00)
[2021-11-15] MEDS: acetaZOLAMIDE 250 MG TABLET PO SCH (21:14)
[2021-11-16] MEDS: MethylPREDNISolone 40 MG/ML VIAL IVP SCH ×3 (00:59→11:56)
[2021-11-16] MEDS: Piperacillin/Tazobactam 3.375 GM in 0.9 % Sodium Chloride Mini Bag 100 ML IVPB SCH ×2 (01:24→08:37)
[2021-11-16 04:18] VITALS: O2SAT 91
[2021-11-16 04:26] LABS: ABG Base Excess 9 mEq/L (-2 to 3); ABG HCO3 43 mEq/L (21-27); ABG Oxygen Saturation 78 % (95-98); ABG PCO2 122 mmHg (35-45); ABG PH 7.15 pH Units (7.32-7.45); ABG PO2 58 mmHg (85-104); ABG TCO2 46 mEq/L (20-26)
[2021-11-16 06:32] LABS: Basophils % 0.1 %; Hematocrit 41.6 % (35.3-44.9); Hemoglobin 12.3 g/dL (11.5-15.4); Immature Granulocytes % 0.9 % (0-4); Lymphocytes # 0.8 K/mcL (0.6-4.6); Lymphocytes % 8.8 %; Mean Corpuscular HGB Conc 29.6 g/dL (31.6-35.5); Mean Corpuscular Hemoglobin 30.6 pg (28.0-33.3); Mean Corpuscular Volume 103.5 fL (83.0-100.0); Mean Platelet Volume 10.1 fL (9.4-12.4); Monocytes # 0.4 K/mcL (0.0-1.3); Monocytes % 4.5 %; Neutrophils # 7.7 K/mcL (1.6-8.9); Platelet Count 511 K/mcL (140-400); Red Blood Count 4.02 M/mcL (3.82-4.97); Red Cell Distribution Width 14.7 % (11.5-14.5); Segmented Neutrophils % 85.7 %
[2021-11-16 06:46] LABS: ABG Base Excess 10 mEq/L (-2 to 3); ABG HCO3 45 mEq/L (21-27); ABG Oxygen Saturation 94 % (95-98); ABG PCO2 138 mmHg (35-45); ABG PH 7.12 pH Units (7.32-7.45); ABG PO2 102 mmHg (85-104); ABG TCO2 49 mEq/L (20-26)
[2021-11-16 06:55] LABS: Calcium 9.4 mg/dL (8.6-10.3); Magnesium 2.1 mg/dL (1.6-2.6); Potassium 4.3 mEq/L (3.5-5.1)
[2021-11-16 07:36] VITALS: BP 99/63; PULSE 57; RESP 19; TEMP 97.3
[2021-11-16] MEDS: Cyanocobalamin (B-12) 1,000 MCG TABLET PO SCH (08:39)
[2021-11-16] MEDS: amLODIPine 5 MG TABLET PO SCH (08:40)
[2021-11-16] MEDS: Gabapentin 100 MG CAPSULE PO SCH (08:40)
[2021-11-16] MEDS: Furosemide 40 MG/4 ML VIAL IVP SCH (08:40)
[2021-11-16] MEDS: acetaZOLAMIDE 250 MG TABLET PO SCH (08:40)
[2021-11-16] MEDS: gemfibroziL 600 MG TABLET PO SCH (08:41)
[2021-11-16] MEDS ORDERED: Scopolamine Patch 1.5 MG PATCH.TD72 TD SCH (10:15)
[2021-11-16] MEDS: Budesonide/Formoterol 160/4.5 1 PUFF INH IH SCH (10:55)
[2021-11-16 11:28] LABS: A.calcoaceticus-baumannii cplx Not Detected (Not Detect); Bacteroides fragilis by PCR Not Detected (Not Detect); Candida albicans by PCR Not Detected (Not Detect); Candida auris by PCR Not Detected (Not Detect); Candida glabrata by PCR Not Detected (Not Detect); Candida krusei by PCR Not Detected (Not Detect); Candida parapsilosis by PCR Not Detected (Not Detect); Candida tropicalis by PCR Not Detected (Not Detect); Crypto. neoformans/gattii PCR Not Detected (Not Detect); Enterobacter cloacae Cmplx PCR Not Detected (Not Detect); Enterobacterales by PCR Not Detected (Not Detect); Enterococcus faecalis by PCR Not Detected (Not Detect); Enterococcus faecium by PCR Not Detected (Not Detect); Escherichia coli by PCR Not Detected (Not Detect); Klebs. pneumoniae group by PCR Not Detected (Not Detect); Klebsiella aerogenes by PCR Not Detected (Not Detect); Klebsiella oxytoca by PCR Not Detected (Not Detect); Proteus by PCR Not Detected (Not Detect); Pseudomonas aeruginosa by PCR Not Detected (Not Detect); Salmonella species by PCR Not Detected (Not Detect); Serratia marcescens by PCR Not Detected (Not Detect); Staph epidermidis by PCR Not Detected (Not Detect); Staph lugdunensis by PCR Not Detected (Not Detect); Staphylococcus aureus by PCR Not Detected (Not Detect); Staphylococcus by PCR Not Detected (Not Detect); Stenotrophomonas maltophilia Not Detected (Not Detect); Streptococcus agalactiae(B)PCR Not Detected (Not Detect); Streptococcus by PCR Not Detected (Not Detect); Streptococcus pneumoniae PCR Not Detected (Not Detect); Streptococcus pyogenes (A) PCR Not Detected (Not Detect)
[2021-11-16] MEDS: Morphine Sulfate 2 MG/ML SYRINGE IVP PRN ×2 (11:53→14:06)
[2021-11-16] MEDS ORDERED: *HR* LORazepam 2 MG/ML VIAL IVP PRN (12:34)
[2021-11-16] MEDS ORDERED: Bisacodyl 10 MG RECTAL SUPPOSITORY RC PRN (13:36)
[2021-11-16] MEDS ORDERED: *HR* LORazepam 2 MG/ML VIAL IVP ONE (14:33)
== END 2021-11-16 16:04 | disposition hospice, inpatient (51) | DRG 291 ==
LOC: EMEROOPIK 11:29 → INPPIK 18:04
PROVIDERS: ADMIT Internal Medicine; ATTEND Internal Medicine

== ENCOUNTER 2021-11-16 14:11 | Inpatient (IN) ==
[2021-11-16] MEDS ORDERED: *HR* LORazepam 2 MG/ML VIAL IVP PRN (15:46)
[2021-11-16] MEDS ORDERED: Acetaminophen 650 MG RECTAL SUPP RC PRN (15:49)
[2021-11-16] MEDS ORDERED: Scopolamine Patch 1.5 MG PATCH.TD72 TD SCH (16:00)
[2021-11-16] MEDS: Haloperidol Lactate 5 MG/ML VIAL IVP PRN ×2 (16:51→21:14)
[2021-11-16] MEDS: Morphine Sulfate 2 MG/ML SYRINGE IVP PRN ×4 (16:52→21:14)
[2021-11-16 21:16] VITALS: BP 72/35; PULSE 67; O2SAT 80
== END 2021-11-17 00:11 | disposition expired | DRG 951 ==
LOC: INPPIK 16:10
PROVIDERS: ADMIT Internal Medicine; ATTEND Internal Medicine